=== PATIENT | female | born 1950 | race Caucasian/White ===

== ENCOUNTER → 2019-05-07 17:31 | Outpatient (CLI) | payer MEDICARE, OTHER, SELFPAY ==
--- NOTE | ~2019-05-07 | XR_ITS ---
EXAMINATION: XR chest 2V DATE: 05/07/2019 17:46 INDICATION: Pneumonia. Cough and fever. TECHNIQUE: PA and lateral views of the chest were obtained. COMPARISON: None FINDINGS: The lungs are clear with no focal airspace opacities, pulmonary edema, pleural effusion or pneumothor ax. Small fat pad along the cardiac apex. The cardiomediastinal silhouette is normal. Mild thoracic s pondylosis. IMPRESSION: 1. No acute cardiopulmonary disease. Reviewed, dictated and finalized at location A. RTER
== END ==
PROVIDERS: PCP Family Medicine; Visit Provider Nurse Practitioner Family
DX: R50.9 Fever, unspecified (principal); J18.9 Pneumonia, unspecified organism
CPT/HCPCS: 71046

== ENCOUNTER → 2020-01-15 13:12 | Outpatient (CLI) | payer MEDICARE, OTHER, SELFPAY ==
--- NOTE | ~2020-01-15 | MM_ITS ---
EXAMINATION: MM screening tez BI w elliott HISTORY: Screening mammogram TECHNIQUE: Craniocaudal and mediolateral oblique 3-D tomosynthesis images were obtained and synthetic 2-D images were generated. CAD analysis was submitted and interpreted. COMPARISON: 06/28/2018, 03/20/2017 bilateral digital screening mammogram examinations BREAST PARENCHYMAL COMPOSITION: There are scattered areas of fibroglandular density. FINDINGS: There is no evidence of suspicious mass, calcification, or architectural distortion to sugg est malignancy in either breast. There has been no suspicious interval change. IMPRESSION: 1. No mammographic evidence of malignancy. 2. Recommend routine screening mammography in one year. BI-RADS Category 1: Negative Reviewed, dictated and finalized at location A.
== END ==
PROVIDERS: PCP Family Medicine; Visit Provider Family Medicine
DX: Z12.31 Encounter for screening mammogram for malignant neoplasm of breast (principal)
CPT/HCPCS: 77063; 77067

== ENCOUNTER → 2020-11-11 12:13 | Outpatient (CLI) | payer MEDICARE, OTHER, SELFPAY ==
--- NOTE | ~2020-11-11 | DEXA_ITS ---
Bone Density Report Name: Whitney Murillo Age: 70 Sex: Female Ethnicity: White Date of : 1950 Indication: postmenopausal osteoporosis; monitoring treatment; height loss; hysterectomy; Referring Provider: Zoraida Cherry Study: Bone densitometry was performed. Exam Date: November 11, 2020 Accession number: [id number] Bone Density: Region BMD T-score Z-score Classification AP Spine (L1-L4) 0.744 -2.8 -0.5 Osteoporosis Femoral Neck (Left) 0.581 -2.4 -0.5 Osteopenia Total Hip (Left) 0.750 -1.6 0.0 Osteopenia Femoral Neck (Right) 0.614 -2.1 -0.2 Osteopenia Total Hip (Right) 0.733 -1.7 -0.1 Osteopenia Total Hip Mean 0.742 -1.7 -0.1 Osteopenia World Health Organization criteria for BMD impression classify patients as: Normal (T-score at or above -1.0), Osteopenia (T-score between -1.0 and -2.5), or Osteoporosis (T-score at or below -2.5). 10-year Fracture Risk: FRAX not reported because: Some T-score for Spine Total or Hip Total or Femoral Neck at or below -2.5 Treated for osteoporosis Previous Exams: Region Exam Age BMD T-score BMD Change BMD Change Date g/cm2 vs Baseline vs Previous AP Spine(L1-L4) 11/11/2020 70 0.744 -2.8 0.073* 0.073* 06/28/2018 68 0.672 -3.4 Total Hip(Left) 11/11/2020 70 0.750 -1.6 0.030* 0.030* 06/28/2018 68 0.720 -1.8 Total Hip(Right) 11/11/2020 70 0.733 -1.7 0.059* 0.059* 06/28/2018 68 0.674 -2.2 *Denotes significance at 95% confidence level, LSC for AP Spine = 0.022 g/cm2, LSC for Total Hip = 0.027 g/cm2 Clinical Information Provided by Patient: Is being treated for osteoporosis Has used the following medications: Prolia (i.e. denosumab), Vitamin D, Calcium, LEVOTHYROXINE Has the following medical conditions: Hysterectomy Patient maximum height was 64.5 Menopause Age: 29 No regular weight bearing exercise Drinks caffeinated beverages Onset of menses at age 12 Number of children 1 Impression: The patient has osteoporosis, based on the Total Spine T-score. No significant bone loss was observed. Discussion: PATIENT UNDER TREATMENT WITH NO SIGNIFICANT BMD LOSS SINCE LAST EXAM. In an untreated patient, BMD typically declines with age. A lack of decline or gain is usually a sign that treatment is efficacious and fracture risk is reduced. It is important to ask patients whether they are taking their medications and to encourage continued and appropriat
== END ==
PROVIDERS: PCP Family Medicine; Visit Provider Physician Assistant
DX: Z78.0 Asymptomatic menopausal state (principal); M81.0 Age-related osteoporosis without current pathological fracture; M16.0 Bilateral primary osteoarthritis of hip
CPT/HCPCS: 77080

== ENCOUNTER → 2021-03-25 10:09 | Outpatient (CLI) | payer MEDICARE, OTHER, SELFPAY ==
--- NOTE | ~2021-03-25 | MM_ITS ---
EXAMINATION: MM screening tez BI w elliott HISTORY: Screening mammogram TECHNIQUE: Craniocaudal and mediolateral oblique 3-D tomosynthesis images were obtained and synthetic 2-D images were generated. CAD analysis was submitted and interpreted. COMPARISON: 01/15/2020, 06/28/2018, 03/20/2017 bilateral screening mammogram examinations BREAST PARENCHYMAL COMPOSITION: There are scattered areas of fibroglandular density. FINDINGS: There is no evidence of suspicious mass, calcification, or architectural distortion to sugg est malignancy in either breast. There has been no suspicious interval change. IMPRESSION: 1. No mammographic evidence of malignancy. 2. Recommend routine screening mammography in one year. BI-RADS Category 1: Negative Reviewed, dictated and finalized at location A. ICATION SUPERVISOR
== END ==
PROVIDERS: PCP Family Medicine; Visit Provider Physician Assistant
DX: Z12.31 Encounter for screening mammogram for malignant neoplasm of breast (principal)
CPT/HCPCS: 77063; 77067

== ENCOUNTER → 2021-09-17 14:56 | Outpatient (CLI) | payer MEDICARE, OTHER, SELFPAY ==
--- NOTE | ~2021-09-17 | XR_ITS ---
EXAMINATION: XR abdomen obstructive series DATE: 09/17/2021 15:32 INDICATION: Abdominal distention TECHNIQUE: Supine and upright views of the abdomen. FINDINGS: No prior studies for comparison. The visualized lung parenchyma is normal.. There is a nonobstructive bowel gas pattern. Gas and stool are seen throughout the colon to the level of the rectum. There is no free air. IMPRESSION: 1. No acute abdominal abnormality. Reviewed, dictated and finalized at location A.
== END ==
PROVIDERS: PCP Family Medicine; Visit Provider Family Medicine
DX: R14.0 Abdominal distension (gaseous) (principal); R10.9 Unspecified abdominal pain
CPT/HCPCS: 74019

== ENCOUNTER → 2022-06-15 15:24 | Outpatient (CLI) | payer OTHER, SELFPAY ==
--- NOTE | ~2022-06-15 | MM_ITS ---
EXAMINATION: MM screening tez BI w elliott HISTORY: Screening mammogram TECHNIQUE: Craniocaudal and mediolateral oblique 3-D tomosynthesis images were obtained and synthetic 2-D images were generated. CAD analysis was submitted and interpreted. COMPARISON: 03/25/2021, 01/15/2020, 06/28/2018 bilateral screening mammogram examinations BREAST PARENCHYMAL COMPOSITION: There are scattered areas of fibroglandular density. FINDINGS: There is no evidence of suspicious mass, calcification, or architectural distortion to sugg est malignancy in either breast. There has been no suspicious interval change. IMPRESSION: 1. No mammographic evidence of malignancy. 2. Recommend routine screening mammography in one year. BI-RADS Category 1: Negative Reviewed, dictated and finalized at location A. SKINNER
== END ==
PROVIDERS: PCP Family Medicine; Visit Provider Family Medicine
DX: Z12.31 Encounter for screening mammogram for malignant neoplasm of breast (principal)
CPT/HCPCS: 77063; 77067

== ENCOUNTER 2022-09-04 21:52 | Emergency (ER) | payer MEDICARE, SELFPAY ==
[2022-09-04] VITALS (8 sets, daily range): BP systolic 120–149; BP diastolic 63–69; PULSE 73; RESP 14–17; TEMP 36.1; O2SAT 93–99
--- NOTE | ~2022-09-04 | CT_ITS ---
Non-contrast CT scan of the Abdomen and Pelvis Clinical indication: Right flank pain Technique: 2.5 mm axial scans were obtained through the abdomen and pelvis without intravenous or or al contrast. Dose reduction technique was used on this scan by utilizing automated exposure control a nd iterative reconstruction technique. The dose-length product (DLP) was 971.61 mGy-cm. Findings: Images through the lung bases reveal 3 mm medial left basilar pulmonary nodule (axial imag e 7). There is an additional 2 mm left basilar pulmonary nodule (axial image 7).. There is no evidence of renal or ureteral calculi. The kidneys and the ureters are nondilated. The liver, spleen, pancreas, gallbladder, and adrenals appear normal. There is no aortic aneurysm. There is no evidence of bowel obstruction. Small fat-containing umbilical hernia noted. No evidence f or appendicitis. Images through the pelvis were performed. There is no evidence of ascites or lymphadenopathy. Urinary bladder unremarkable. Patient is post hysterectomy. No pelvic mass seen. There is a small sclerotic lesion at the posterior left side of the T12 vertebral body, nonspecific. Impression: Small fat-containing umbilical hernia. Small sclerotic lesion in the posterior left T12 vertebral body, nonspecific. Reviewed, dictated and finalized at location . Impression: Small fat-containing umbilical hernia. Small sclerotic lesion in the posterior left T12 vertebral body, nonspecific.
--- NOTE | 2022-09-04 22:32 | ED.BACK ---
HPI - Back Pain/Injury General Chief Complaint: Back Pain/Injury Stated Complaint: back pain Time Seen by Provider: 09/04/22 22:14 History of Present Illness HPI Narrative: This is a 72-year-old female with history of hypothyroidism, who presents emergency department complaining of right-sided flank pain for the past 2 days. Patient states 2 days ago, she lifted laundry and turned sharply with immediate onset of 7/10 right flank pain she states this did not improve despite Tylenol or ibuprofen. She also incidentally complains of intermittent abdominal bloating but denies abdominal pain Related Data Home Medications Medication Instructions Recorded Confirmed calcium carbonate 600 mg calcium 600 mg PO DAILY 02/12/21 08/04/22 (1,500 mg) tablet (Calcium) cholecalciferol (vitamin D3) 25 25 mcg PO DAILY 02/12/21 08/04/22 mcg (1,000 unit) capsule Allergies Allergy/AdvReac Type Severity Reaction Status Date / Time lactose Allergy Intermediate Nausea and Verified 09/04/22 21:53 Vomiting Sulfa (Sulfonamide Allergy Intermediate Nausea and Verified 09/04/22 21:53 Antibiotics) Vomiting Review of Systems Review of Systems: CONSTITUTIONAL: Denies fever, chills, or sweats. CARDIOVASCULAR: Denies chest pain, palpitations, or edema. RESPIRATORY: Denies cough or dyspnea. GASTROINTESTINAL: Right flank pain denies nausea, vomiting, or diarrhea. GENITOURINARY: Denies dysuria or hematuria. SKIN: Denies rash or itching. MUSCULOSKELETAL: Denies back pain, joint pain, or myalgia. NEUROLOGIC: Denies headache, numbness, dizziness, or weakness. PSYCHIATRIC: Denies anxiety or depression. [facility] Past Medical History Medical History Age-related osteoporosis without current pathological fracture Elevated LDL cholesterol level Gastro-esophageal reflux disease without esophagitis Hypothyroidism, unspecified Postmenopausal Surgical History Surgical History H/O: hysterectomy Family History Family History Mother Family history of elevated blood lipids Hypertension Cerebrovascular accident, Onset Age: 63 Patient's mother is Father Family history of chronic obstructive pulmonary disease, Onset Age: 77 Patient's father is Sibling Scleroderma Social History Social History Social History: Smoking status: Never smoker Second hand tobacco smoke exposure: No Alcohol intake: never Substance use: never Substance use type: does not use Lack of Transportation: No Lack of Food: Never True Current Housing: I Have Housing Concerned About Future Housing: No Difficulty Paying Gas/Electric Bills: No Difficulty Paying for Meds: No Currently Unemployed: YES Education: Decline to Answer Difficulty w/ Childcare or Family Care: No Living arrangements: with family Occupation/Education: retired Gender identity (if verbalized by the patient): Female Sexual Orientation (if Verbalized by the Patient): Straight or Heterosexual Spiritual care concerns: No Exam Narrative: GENERAL: Well-developed, well-nourished, and in no acute distress. HEAD: Normocephalic, atraumatic. EYES: PERRLA and EOMI. ENT: Nares clear, no rhinorrhea or epistaxis. Mucous membranes moist. Oropharynx without tonsillar hypertrophy exudate or other lesions. CHEST: Clear to auscultation. No respiratory distress. No wheezes rales or rhonchi HEART: Regular rate and rhythm. No murmur heard. Normal peripheral pulses. ABDOMEN: Soft, nontender, nondistended, normal active bowel sounds. BACK: No midline spine tenderness to palpation, no step-off or crepitus, muscle spasm noted in the lumbar paraspinal musculature from approximately L1-L5 EXTREMITIES: Normal range
[2022-09-04] MEDS: KETOROLAC 30 MG/ML VIAL (*BKC) IM (22:37)
[2022-09-04] MEDS: CYCLOBENZAPRINE HCL 5 MG TABLET PO (22:38)
[2022-09-04 22:59] LABS: Alanine Aminotransferase 38 U/L (6-35); Albumin Level 4.2 g/dL (3.5-5.1); Alkaline Phosphatase 85 U/L (38-126); Anion Gap 5 mmol/L (8-16); Aspartate Amino Transferase 25 U/L (14-36); Bilirubin,Total 0.3 mg/dL (0.2-1.3); Blood Urea Nitrogen 13 mg/dL (7-17); Calcium 9.2 mg/dL (8.4-10.2); Carbon Dioxide 32 mmol/L (22-30); Chloride 98 mmol/L (98-107); Estimated CRCL calculation 69 ml/min; Estimated Glomerular Filt Rate > 60; Glucose 129 mg/dL (65-110); Potassium 3.7 mmol/L (3.4-5.0); Sodium 135 mmol/L (137-145)
[2022-09-04] MEDS: oxyCODONE/ACETAMINOPHEN (*CRX) 5-325 MG TABLET 1 TABLET PO (23:50)
[2022-09-05] MEDS: LIDOCAINE 5% PATCH 1 PATCH TRANSDERM (00:33)
[2022-09-05 00:40] LABS: Appearance Urine Cloudy (Clear); Bacteria Urine None Seen /hpf; Bilirubin Urine Negative (Negative); Blood Urine Negative (Negative); Color Urine Yellow (Yellow); Glucose Urine UA Negative (Negative); Ketones Urine Negative (Negative); Leukocyte Esterase Ur 3+ LEU/UL (Negative); Nitrate Urine Negative (Negative); Non Pathogenic Casts 0-2; Protein Urine Negative (Negative); RBC Urine 0-2 /hpf (0-2); Specific Grav Ur 1.011 (1.001-1.035); Squamous Epithelial Cell Urine None seen /hpf (Few); Urobilinogen Urine 0.2 mg/dL (<2.0); WBC Urine 21-50 /hpf
[2022-09-05 00:45] LABS: Add Urine Microscopic? YES
[2022-09-05 00:54] VITALS: BP 112/68; PULSE 90; RESP 16; O2SAT 99
== END 2022-09-05 00:56 | disposition home or self-care (01) ==
PROVIDERS: Emergency Provider Preventive Medicine Aerospace Medicine; PCP Family Medicine
DX: S39.012A Strain of muscle, fascia and tendon of lower back, initial encounter (principal); E78.00 Pure hypercholesterolemia, unspecified; E03.9 Hypothyroidism, unspecified; M81.0 Age-related osteoporosis without current pathological fracture; K21.9 Gastro-esophageal reflux disease without esophagitis; Z90.710 Acquired absence of both cervix and uterus; X50.0XXA Overexertion from strenuous movement or load, initial encounter
CPT/HCPCS: 36415; 74176; 80053; 81001; 87086; 87088; 96372; 99284; A9270; J1885

== ENCOUNTER 2022-11-10 03:48 | Day surgery (SDC) | payer MEDICARE, SELFPAY ==
[2022-10-31 13:31] VITALS: BMI 25.5
--- NOTE | 2022-11-09 16:23 | PM.HPGS ---
History of Present Illness History of Present Illness Consent: Risks, benefits, and alternatives have been discussed and questions answered. Patient agrees to proceed with procedure. Chief complaint: celiac disease, diarrhea Narrative: Whitney Murillo is a 72 year old female is being investigated because of complaints of excessively loose stools and sometimes nearly being incontinent.? This began less than a year ago.? She is also having a discomfort in the right lower quadrant.? Is primarily that the last 6 months she has been the most uncomfortable.? It did give her the sensation that when she has a bowel movement that the stools coming from the right side.? She has celiac disease diagnosed 5 years ago and has been very good about the diet. Review of Systems Review of Systems: All systems reviewed & are unremarkable except as noted in HPI and below PMFSH Past Medical History Medical History Age-related osteoporosis without current pathological fracture Elevated LDL cholesterol level Gastro-esophageal reflux disease without esophagitis Hypothyroidism, unspecified Postmenopausal Surgical History Surgical History H/O: hysterectomy Family History Family History Mother Family history of elevated blood lipids Hypertension Cerebrovascular accident, Onset Age: 63 Patient's mother is Father Family history of chronic obstructive pulmonary disease, Onset Age: 77 Patient's father is Sibling Scleroderma Social History Social History Social History: Smoking status: Never smoker Second hand tobacco smoke exposure: No Alcohol intake: never Substance use: never Substance use type: does not use Lack of Transportation: No Lack of Food: Never True Current Housing: I Have Housing Concerned About Future Housing: No Difficulty Paying Gas/Electric Bills: No Difficulty Paying for Meds: No Currently Unemployed: YES Education: Decline to Answer Difficulty w/ Childcare or Family Care: No Living arrangements: other Additional living arrangements comments: With spouse Occupation/Education: retired Gender identity (if verbalized by the patient): Female Sexual Orientation (if Verbalized by the Patient): Straight or Heterosexual Spiritual care concerns: No Meds Home Medications and Allergies Home Medications Medication Instructions Recorded Confirmed Type calcium carbonate 600 mg calcium 600 mg PO DAILY 10/22/21 07/20/23 History (1,500 mg) tablet (Calcium) cholecalciferol (vitamin D3) 25 25 mcg PO DAILY 02/12/21 11/10/22 History mcg (1,000 unit) capsule levothyroxine 100 mcg tablet 100 mcg PO DAILY #90 tabs 03/21/22 11/10/22 Rx azelastine 137 mcg (0.1 %) nasal 137 mcg intranasal Q12H PRN 10/31/22 11/10/22 History spray aerosol allergies Allergies Allergy/AdvReac Type Severity Reaction Status Date / Time lactose AdvReac Intermediate Nausea and Verified 11/10/22 10:08 Vomiting Sulfa (Sulfonamide AdvReac Intermediate Nausea and Verified 11/10/22 10:08 Antibiotics) Vomiting Exam Const: General: alert Orientation/consciousness: patient oriented x3 Resp: Auscultation: clear to auscultation bilaterally Cardio: Rhythm: regular rhythm GI: GI Palp: Yes Soft to palpation and No Tenderness to palpation present (GI) Neuro: General: patient oriented x3 Assessment and Plan Assessment and plan (1) Celiac disease: Code(s): K90.0 - Celiac disease Status: Acute Assessment and Plan: EGD with possible biopsy or dilatation or cautery. (2) Diarrhea: Code(s): R19.7 - Diarrhea, unspecified Status: Acute Assessment and Plan: Colonoscopy with possible biopsy or polyp
[2022-11-10 10:09] VITALS: BP 120/47; PULSE 58; RESP 18; TEMP 36.7; O2SAT 99; BMI 25.2
[2022-11-10] MEDS: LACTATED RINGERS 1,000 ML 150 ML IV CONT (10:29)
--- NOTE | 2022-11-10 10:32 | WPDANESEPPF ---
Anes - Initial Pre Proc Eval Procedure: Operation Date: 11/10/22 11:15 Proposed Procedures p Esophagogastroduodenoscopy & Colonoscopy - Nik Castellanos MD Date/Time: 11/10/22 10:32 Surgeon: Nik Castellanos MD Pre Op Diagnosis: celiac disease, diarrhea Patient Data Age: 72 Gender: F Height: 1.61 m Weight: 65.8 kg Last Vital Signs Temp 98.0 F 11/10/22 10:09 Pulse 58 L 11/10/22 10:09 Resp 18 11/10/22 10:09 BP 120/47 L 11/10/22 10:09 Pulse Ox 99 11/10/22 10:09 O2 Del Method Room Air 11/10/22 10:09 Allergies Allergy/AdvReac Type Severity Reaction Status Date / Time lactose AdvReac Intermediate Nausea and Verified 11/10/22 10:08 Vomiting Sulfa (Sulfonamide AdvReac Intermediate Nausea and Verified 11/10/22 10:08 Antibiotics) Vomiting Home Medications Medication Instructions Recorded Confirmed Type calcium carbonate 600 mg calcium 600 mg PO DAILY 02/12/21 11/10/22 History (1,500 mg) tablet (Calcium) cholecalciferol (vitamin D3) 25 25 mcg PO DAILY 02/12/21 11/10/22 History mcg (1,000 unit) capsule levothyroxine 100 mcg tablet 100 mcg PO DAILY #90 tabs 03/21/22 11/10/22 Rx azelastine 137 mcg (0.1 %) nasal 137 mcg intranasal Q12H PRN 10/31/22 11/10/22 History spray aerosol allergies Patient hx anesthesia problems: none Family hx anesthesia problems: none Results Review: All pre-operative results and documents have been reviewed as part of the pre-operative evaluation. [facility] Past Medical History Medical History Age-related osteoporosis without current pathological fracture Elevated LDL cholesterol level Gastro-esophageal reflux disease without esophagitis Hypothyroidism, unspecified Postmenopausal Surgical History Surgical History H/O: hysterectomy Family History Family History Mother Family history of elevated blood lipids Hypertension Cerebrovascular accident, Onset Age: 63 Patient's mother is Father Family history of chronic obstructive pulmonary disease, Onset Age: 77 Patient's father is Sibling Scleroderma Social History Social History Social History: Smoking status: Never smoker Second hand tobacco smoke exposure: No Alcohol intake: never Substance use: never Substance use type: does not use Lack of Transportation: No Lack of Food: Never True Current Housing: I Have Housing Concerned About Future Housing: No Difficulty Paying Gas/Electric Bills: No Difficulty Paying for Meds: No Currently Unemployed: YES Education: Decline to Answer Difficulty w/ Childcare or Family Care: No Living arrangements: other Additional living arrangements comments: With spouse Occupation/Education: retired Gender identity (if verbalized by the patient): Female Sexual Orientation (if Verbalized by the Patient): Straight or Heterosexual Spiritual care concerns: No Anes - Eval Final PreProcedure Day of Procedure 11/10/22 10:32 Patient weight: normal Heart: regular rate and rhythm Lungs: clear to auscultation Airway: Mallampati scale class II Neurological: alert and oriented Last oral intake: >/= 8 hours ASA classification: II Emergent: no Anesthetic plan: proceed Anesthesia type and monitoring: general GIVS and standard monitoring Results Review: All pre-operative results and documents have been reviewed as part of the pre-operative evaluation. Informed Consent: The patient's anesthetic plan and its attendant risks and benefits were discussed with the patient/family/POA. Questions were solicited and answers provided to the satisfaction of the patient/family/POA.
--- NOTE | 2022-11-10 11:37 | SUR.OPER ---
EGD began at 1129 and ended at 1134. Colonoscopy began at 1139.
[2022-11-10 11:54] VITALS: BP 125/64; PULSE 74; RESP 21; O2SAT 100
[2022-11-10 12:04] VITALS: BP 129/73; PULSE 70; RESP 20; O2SAT 100
[2022-11-10 12:14] VITALS: BP 117/72; PULSE 76; RESP 16; O2SAT 100
== END 2022-11-10 12:31 | disposition home or self-care (01) ==
PROVIDERS: PCP Family Medicine; Visit Provider Internal Medicine Gastroenterology
PROC: 0DJ08ZZ Inspection of Upper Intestinal Tract, Via Natural or Artificial Opening Endoscopic (ICD-10-PCS; CPT 43235; principal; 2022-11-10 11:15)
DX: R19.7 Diarrhea, unspecified (principal); K21.9 Gastro-esophageal reflux disease without esophagitis; K90.0 Celiac disease; E03.9 Hypothyroidism, unspecified; E78.00 Pure hypercholesterolemia, unspecified; M81.0 Age-related osteoporosis without current pathological fracture
CPT/HCPCS: 45380; 43239; 88305; J2704; J7120

== ENCOUNTER → 2023-01-25 13:32 | Outpatient (CLI) | payer MEDICARE, SELFPAY ==
--- NOTE | ~2023-01-25 | DEXA_ITS ---
Bone Density Report Name: XENA RAMIREZ Age: 72 Sex: Female Ethnicity: White Date of : 1950 Indication: postmenopausal osteoporosis; hysterectomy; Referring Provider: BIANCA KUNZ Study: Bone densitometry was performed. Exam Date: January 25, 2023 Accession number: [id number] Bone Density: Region BMD T-score Z-score Classification AP Spine (L1-L4) 0.716 -3.0 -0.7 Osteoporosis Femoral Neck (Left) 0.617 -2.1 -0.1 Osteopenia Total Hip (Left) 0.739 -1.7 0.0 Osteopenia Femoral Neck (Right) 0.564 -2.6 -0.6 Osteoporosis Total Hip (Right) 0.707 -1.9 -0.2 Osteopenia Total Hip Mean 0.723 -1.8 -0.1 Osteopenia World Health Organization criteria for BMD impression classify patients as: Normal (T-score at or above -1.0), Osteopenia (T-score between -1.0 and -2.5), or Osteoporosis (T-score at or below -2.5). 10-year Fracture Risk: FRAX not reported because: Some T-score for Spine Total or Hip Total or Femoral Neck at or below -2.5 Previous Exams: Region Exam Age BMD T-score BMD Change BMD Change Date g/cm2 vs Baseline vs Previous AP Spine(L1-L4) 01/25/2023 72 0.716 -3.0 0.044* -0.029* 11/11/2020 70 0.744 -2.8 0.073* 0.073* 06/28/2018 68 0.672 -3.4 Total Hip(Left) 01/25/2023 72 0.739 -1.7 0.018 -0.012 11/11/2020 70 0.750 -1.6 0.030* 0.030* 06/28/2018 68 0.720 -1.8 Total Hip(Right) 01/25/2023 72 0.707 -1.9 0.032* -0.027 11/11/2020 70 0.733 -1.7 0.059* 0.059* 06/28/2018 68 0.674 -2.2 *Denotes significance at 95% confidence level, LSC for AP Spine = 0.022 g/cm2, LSC for Total Hip = 0.027 g/cm2 Clinical Information Provided by Patient: Has used the following medications: Vitamin D Has the following medical conditions: Hysterectomy Patient maximum height was 63.5 Menopause Age: 28 No regular weight bearing exercise Drinks caffeinated beverages Onset of menses at age 12 Number of children 1 Impression: The patient has osteoporosis, based on the Total Spine T-score. The BMD for the AP Spine(L1-L4) decreased, changing by -0.029 since the last DXA exam. Discussion: INCREASED RISK OF FRACTURE. BONE DENSITY IS UNDESIRABLY LOW AT ONE OR MORE SKELETAL SITES, CONSISTENT WITH POSTMENOPAUSAL OSTEOPOROSIS. This patient's lowest T-score meets the World Health Organization's (WHO) criteria for osteoporosis at one or more s
== END ==
PROVIDERS: PCP Physician Assistant; Visit Provider Physician Assistant
DX: Z78.0 Asymptomatic menopausal state (principal); M81.0 Age-related osteoporosis without current pathological fracture; M85.852 Other specified disorders of bone density and structure, left thigh; M85.851 Other specified disorders of bone density and structure, right thigh
CPT/HCPCS: 77080

== ENCOUNTER 2023-06-06 08:42 | Outpatient (CLI) | payer MEDICARE, SELFPAY ==
--- NOTE | 2023-06-06 08:45 | ECHO_ITS ---
Patient Info Name: Whitney Murillo Age: 73 years : 1950 Gender: Female Ht: 64 in Wt: 147 lbs BSA: 1.75 m2 HR: 65 bpm BP: 149 / 80 mmHg Heart Rhythm: Sinus Rhythm Technical Quality: Good Exam Date: 06/06/2023 9:12 AM Exam Location: Echo Lab Patient Status: Outpatient Admit Date: 06/06/2023 Staff Ordering Physician: Alyssa Pappas MD Storage Receipt Poster: Lori James RDCS Attending Provider: Alyssa Pappas MD Referring Physician: Mian PHILLIPS; Exam Type: CA echo doppler color flow Study Info Indications - murmur Complete two-dimensional, color flow and Doppler transthoracic echocardiogram is performed. Summary 1. Complete two-dimensional, color flow and Doppler transthoracic echocardiogram is performed. 2. Left ventricular chamber dimension is normal. 3. Left ventricular systolic function is normal, estimated at 60-65%. 4. The left ventricular diastolic function is abnormal. 5. E/e' 15 is elevated. 6. Left atrial chamber dimension is mildly enlarged. 7. There is trace mitral valve regurgitation. 8. No pulmonary hypertension, estimated pulmonary arterial systolic pressure is 24 mmHg. Left Ventricle E/e' 15 is elevated. Left ventricular chamber dimension is normal. Left ventricular systolic function is normal, estimated at 60-65%. The left ventricular diastolic function is abnormal. Right Ventricle Right ventricular systolic function is normal and with normal TAPSE 2.3 cm. Right ventricular chamber dimension is normal. Left Atria Left atrial chamber dimension is mildly enlarged. Right Atria Right atrial chamber dimension is normal. Aortic Valve The aortic valve is trileaflet. There is no aortic valve stenosis. There is no aortic valve regurgitation. Pulmonic Valve There is no pulmonic regurgitation. Mitral Valve There is no mitral valve stenosis. There is trace mitral valve regurgitation. Tricuspid Valve There is no tricuspid valve regurgitation. No pulmonary hypertension, estimated pulmonary arterial systolic pressure is 24 mmHg. Pericardium/Pleural There is no pericardial effusion. Inferior Vena Cava Normal inferior vena cava with >50% collapse upon inspiration consistent with normal right atrial pressure, 5 mmHg. Aorta The aortic root size at the sinus of Valsalva is normal. Left Ventricular Outflow Tract Name Value Normal LVOT 2D LVOT Diameter 1.8 cm LVOT Doppler LVOT Peak Gradient 4 mmHg LVOT Mean Gradient 2 mmHg LVOT VTI 27 cm LVOT VTI/AV VTI Ratio 0.7 LVOT Stroke Volume 65 ml LVOT CO 4.0 l/min LVOT CI 2.3 l/min/m2 Pulmonic Valve Name Value Normal RVOT Doppler RVOT Peak Gradient 3 mmHg PV Doppler
== END 2023-06-06 08:43 | disposition home or self-care (01) ==
PROVIDERS: PCP Family Medicine; Visit Provider Family Medicine
DX: R93.1 Abnormal findings on diagnostic imaging of heart and coronary circulation (principal); I34.0 Nonrheumatic mitral (valve) insufficiency; I51.7 Cardiomegaly
CPT/HCPCS: 93306

== ENCOUNTER 2024-11-03 08:19 | Emergency (ER) | payer MEDICARE, SELFPAY ==
--- OUTSIDE RECORDS SUMMARY | 2024-11-03 08:22 | XMS_ITS | Patient Health Record ---
Author Organization [facility] Address [address] [place], [place] [id number] Care Team Providers Care Work Environment Safety Inspector Name Role Phone SHANKAR PARSON Unavailable [phone] Oral Latif Unavailable Unavailable Allergies Allergen (clinical drug ingredient) Drug/Non Drug Allergy documented on EMR Reaction Allergy Type Onset Date Status Product containing sulfonamide (product) (uncoded) Unknown Allergy 03/27/2017 active Reason For Referral No Information Medications Medication SIG (Take, Route, Frequency, Duration) Notes Start Date End Date Status ciclopirox 80 MG/ML Topical Solution ciclopirox 80 MG/ML Topical SolutionOriginal Medicationciclopirox 80 MG/ML Topical Solution *Reorder from [employer] for eRx and Interaction Alerts* 07/17/2017 Active Immunizations Vaccine Route Administration Date Status Comme nts Influenza, seasonal, injecta ble, preservative free, 3 yrs and above Unknown 01/25/2023 Administered Vital Signs Height-cm 162.56 cm 10/28/2024 Weight-kg 59.87 kg 10/28/2024 Height 64.00 in 10/28/2024 Weight 132 lbs 10/28/2024 BMI 22.66 kg/m2 10/28/2024 Encounters Encounter Location Date Provider Diagnosis [facility] [address] [place], [place] [id number] 10/28/2024 SHANKAR SNOOK Tinea unguium B35.1 [facility] [address] [place], [place] [id number] 12/18/2023 SHANKAR SNOOK Tinea unguium B35.1 ; Pain in right toe(s) M79.674 ; Pain in left toe(s) M79.675 and Atherosclerosis of nenana arteries of extremities with intermittent claudication, bilateral legs I70.213 [facility] [address] [place] [id number] 02/26/2024 SHANKAR SNOOK Tinea unguium B35.1 ; Pain in right toe(s) M79.674 ; Pain in left toe(s) M79.675 and Atherosclerosis of nenana arteries of extremities with intermittent claudication, bilateral legs I70.213 [facility] [address] [place] [id number] 06/03/2024 SHANKAR SNOOK Tinea unguium B35.1 ; Pain in right toe(s) M79.674 ; Pain in left toe(s) M79.675 and Atherosclerosis of nenana arteries of extremities with intermittent claudication, bilateral legs I70.213 [facility] [address] [place] [id number] 08/12/2024 SHANKAR SNOOK Tinea unguium B35.1 ; Pain in right toe(s) M79.674 ; Pain in left toe(s) M79.675 and Intermittent claudication of both lower extremities due to atherosclerosis I70.213 Assessments Encounter Date Diagnosis (ICD Code) Assessment Notes Treatment Notes Treatment Clinical Notes Section Notes 12/18/2023 Tinea unguium (ICD-10 - B35.1) FUNGAL TOENAILS: Discussed various treatment options for fungal toenails including debridement, topical antifungals, oral antifungals, toenail avulsion, or toenail matrixectomy. NAIL DEBRIDEMENT: Nails 1-5 Bilateral were debrided extensively with nail nippers and emery board, reducing length and girth to pink healthy tissue with any subungual debris and necrotic tissue removed 12/18/2023 Pain in right toe(s) (ICD-10 - M79.674) 02/26/2024 Tinea unguium (ICD-10 - B35.1) FUNGAL TOENAILS: Discussed various treatment options for fungal toenails including debridement, topical antifungals, oral antifungals, toenail avulsion, or toenail matrixectomy. NAIL DEBRIDEMENT: Nails 1-5 Bilateral were debrided extensively with nail nippers and emery board, reducing length and girth to pink healthy tissue with any subungual debris and necrotic tissue removed 02/26/2024 Pain in right toe(s) (ICD-10 - M79.674) 06/03/2024 Tinea unguium (ICD-10 - B35.1) FUNGAL TOENAILS: Discussed various treatment options for fungal toenails including debridement, topical antifungals, oral antifungals, toenail avulsion, or toenail matrixectomy. NAIL DEBRIDEMENT: Nails 1-5 Bilateral were debrided extensively with nail nippers and emery board, reducing length and girth to pink healthy tissue with any subungual debris and necrotic tissue removed 06/03/2024 Pain in right toe(s) (ICD-10 - M79.674) 08/12/2024 Tinea unguium (ICD-10 - B35.1) FUNGAL TOENAILS: Discussed various treatment options for fungal toenails including debridement, topical antifungals, oral antifungals, toenail avulsion, or toenail matrixectomy. NAIL DEBRIDEMENT: Nails 1-5 Bilateral were debrided extensively with nail nippers and emery board, reducing length and girth to pink healthy tissue with any subungual debris and necrotic tissue removed 08/12/2024 Pain in right toe(s) (ICD-10 - M79.674) 10/28/2024 Tinea unguium (ICD-10 - B35.1) FUNGAL TOENAILS: Discussed various treatment options for fungal toenails including debridement, topical antifungals, oral antifungals, toenail avulsion, or toenail matrixectomy. NAIL DEBRIDEMENT: Nails 1-5 Bilateral were debrided extensively with nail nippers and emery board, reducing length and girth to pink healthy tissue with any subungual debris and necrotic tissue removed. Lamisil Initial Treatment: Order Liver Function tests prior to course of oral Lamisil. If the LFTS are within normal limits, order 6 weeks of Lamisil. Liver Function Test will be repeated after 6 weeks prior to final dose for a total of 12 weeks of therapy. 08/12/2024 Pain in left toe(s) (ICD-10 - M79.675) 06/03/2024 Pain in left toe(s) (ICD-10 - M79.675) 02/26/2024 Pain in left toe(s) (ICD-10 - M79.675) 12/18/2023 Pain in left toe(s) (ICD-10 - M79.675) 12/18/2023 Atherosclerosis of nenana arteries of extremities with intermittent claudication, bilateral legs (ICD-10 - I70.213) 02/26/2024 Atherosclerosis of nenana arteries of extremities with intermittent claudication, bilateral legs (ICD-10 - I70.213) 06/03/2024 Atherosclerosis of nenana arteries of extremities with intermittent claudication, bilateral legs (ICD-10 - I70.213) 08/12/2024 Intermittent claudication of both lower extremities due to atherosclerosis (ICD-10 - I70.213) Plan Of Treatment Pending Test Test Name Order Date Liver Function Test (LFT) 10/28/2024 Next Appt Details Provider Name:SHANKAR PARSON, 09:10:00 AM, [address], [facility], [place], [place], [phone], Provider Name:SHANKAR PARSON, 10:00:00 AM, [address], [facility], [place], [place], [phone], Insurance Providers Payer Name Payer Address Payer Phone Subscriber Number Group Number Insured Name Patient Relationship to Insured Coverage Start Date Coverage End Date [address] [address] [id number] XENA RAMIREZ Self - patient is the insured
--- OUTSIDE RECORDS SUMMARY | 2024-11-03 08:22 | XMS_ITS ---
Author Organization [facility] Address [address] [place], [place] [phone] Care Team Providers Care Forest Patrolman Name Role Phone BLANK SHANKAR Unavailable [phone] Oral Latif Unavailable Unavailable Allergies Allergen (clinical drug ingredient) Drug/Non Drug Allergy documented on EMR Reaction Allergy Type Onset Date Status Product containing sulfonamide (product) (uncoded) Unknown Allergy 03/27/2017 active REASON FOR VISIT The patient has not responded to topical antifungals and wants to try something different., Patientpresents for at-risk foot care . The patient has painful toenails that cause difficulty with ambulation and shoegear. The onset is gradual Medications Medication SIG (Take, Route, Frequency, Duration) Notes Start Date End Date Status ciclopirox 80 MG/ML Topical Solution ciclopirox 80 MG/ML Topical SolutionOriginal Medicationciclopirox 80 MG/ML Topical Solution *Reorder from [employer] for eRx and Interaction Alerts* 07/17/2017 Active Vital Signs Height 64.00 in 10/28/2024 Weight 132 lbs 10/28/2024 BMI 22.66 kg/m2 10/28/2024 Height-cm 162.56 cm 10/28/2024 Weight-kg 59.87 kg 10/28/2024 Encounters Encounter Location Date Provider Diagnosis [facility] [address] [place], [place] [phone] 10/28/2024 SHANKAR PARSON Tinea unguium B35.1 Assessments Encounter Date Diagnosis (ICD Code) Assessment Notes Treatment Notes Treatment Clinical Notes Section Notes 10/28/2024 Tinea unguium (ICD-10 - B35.1) FUNGAL [...] a total of 12 weeks of therapy. Plan Of Treatment Treatment Notes Assessment Notes Tinea unguium FUNGAL TOENAILS: Discussed various treatment options for [...] a total of 12 weeks of therapy. Pending Test Test Name Order Date Liver Function Test (LFT) 10/28/2024 Next Appt Details Follow Up: 5 weeks, Reason: See how oral lamisil is tolerated. Repeat LFTs Provider Name:SHANKAR PARSON, 09:10:00 AM, [address], [facility], [place], [place], [phone], Provider Name:SHANKAR PARSON, 10:00:00 AM, [address], [facility], [place], [place], [phone], Progress Notes * XENA RAMIREZ ADOB:1949 (74 yo F)Acc No.[id number]:10/28/2024 Patient: XENA ELLIOTT Provider: Daniel Parson DPM :1950 A ge:74 Y S ex:Female Date:10/28/2024 Address:[address], [facility] Subjective: * Chief Complaints: * 1 . The patient has not responded to topical antifungals and wants to try something different.. 2. Patient presents for at-risk foot care . The patient has painful toenails that cause difficulty with ambulation and shoegear. The onset is gradual. * HPI: H PI: General care P atient presents to the office for at risk foot care. Patient states that their nails are thickened, elongated and painful. Patient states that it is aggravated by shoe gear. Onset is gradual. Patient denies being diabetic., Patient denies taking blood thinners., Date last seen by Dr. Latif was 06/2024., Initials [facility]. sample. * ROS: G eneral / Constitutional: Patient denies c hills, fever, weight loss. ? C ardiovascular: Patient denies e brett, shortness of breath. ? M usculoskeletal: Patient denies w eakness, broken foot bone. ? S kin: Patient complains of f ungal nails, nail changes. ? N eurologic: Patient denies b alance difficulty, confusion, difficulty speaking, dizziness. * Medical History: * Family History: F ather: PRN - Father: :: Pneumonia,,known absent , :: COPD,,known absent . M other: PRN - Mother: :: Stroke,,known absent . B rother: SIB - Brother: . * Social History: M igrated Social History: M igrated Social History: Smoking Status : Never smoked , History of tobacco use :. * Medications: T aking ciclopirox 80 MG/ML Topical Solution , Notes to Pharmacist: ciclopirox 80 MG/ML Topical SolutionOriginal Medicationciclopirox 80 MG/ML Topical Solution *[facility] for eRx and Interaction Alerts*, Medication List reviewed and reconciled with the patient * Allergies: P roduct containing sulfonamide (product): Allergy - Onset Date 03/27/2017. Objective: * Vitals: W t:132lbs, Wt-k.87 kg, Ht: 64.00 in, Ht-cm: 162.56 cm, BMI:22.66Index, Body Surface Area: 1.64. * Examination: C onstitutional: Constitutional T he patient is awake, alert, well developed, well groomed and well nourished. D ermatologic: Skin findings: S kin is thin, atrophic and lacking pedal hair. Nail pathology: N ails 1, 2, 3, 4, and 5 bilateral are elongated, thick, discolored, and dystrophic with subungual debris. They are painful to palpation. ? V ascular: Dorsalis pedis pulse: 1 /4 b ilateral. Posterior tibial pulse: 0 /4 b ilateral. Capillary refill: g reater than 3 seconds. Edema: N o edema, bilateral. N eurologic: Gross sensation G ross sensation is intact to light touch.? M usculoskeletal: Muscle Strength M uscle strength is 5/5 in regards to dorsiflexion, plantarflexion, inversion, and eversion in bilateral lower extremities. ? Assessment: * Assessment: 1. T leighann montes - B35.1 (Primary) Plan: * Treatment: * Immunizations: Immunization record has been reviewed and updated. * Follow Up: 5 weeks (Reason: See how oral lamisil is tolerated. Repeat LFTs) * Billing Information: * Visit Code: * Procedure Codes: * Electronic signature of SHANKAR PARSON DPM on 11/03/2024 at 08:22 AM CDT Sign off status: Pending * Provider: Daniel Parson DPM Date: 10/28/2024 Generated for Memo knox/Dominguez/Lew on: 11/03/2024 08:22 AM CDT History and Physical Notes * HPI (History of Present Illness) Category Sub-Category Detail Notes Category Not es HPI General care Patient presents to the office for at risk foot care. Patient states that their nails are thickened, elongated and painful. Patient states that it is aggravated by shoe gear. Onset is gradual. Patient denies being diabetic., Patient denies taking blood thinners., Date last seen by Dr. Latif was 06/2024., Initials [facility] sample Examination Category Sub-Category Detail Notes Category Not es Dermatologic Skin findings: Skin is thin, at rophic and lacking pedal hair Nail pathology: Nails 1, 2, 3, 4, an d 5 bilateral are elongated, thick, discolored, and dystrophic with subungual debris. They are painful to palpation Neurologic Gross sensation Gross sensation is intact to light touch Vascular Dorsalis pedis pulse: 1/4 bilateral Edema: No edema, bilateral Capillary refill: greater than 3 secon ds Posterior tibial pulse: 0/4 bilateral Musculoskeletal Muscle Strength Muscle strength is 5/5 in regards to dorsiflexion, plantarflexion, inversion, and eversion in bilateral lower extremities Constitutional Constitutional The patient is a wake, alert, well developed, well groomed and well nourished
--- NOTE | 2024-11-03 08:23 | ED_ITS ---
HPI - Eye Problem General Chief complaint: Eye Problems Stated complaint: LT Eye Problems Time Seen by Provider: 11/03/24 08:34 Source: patient and RN notes reviewed Mode of arrival: ambulatory Limitations: no limitations History of Present Illness HPI Narrative: 74-year-old female presents concern for left eye pain. Reports she felt a pain when she was taking her contact lens out last night, she woke up this morning it was worse. She reports watery drainage. She put her contact in her unaffected right eye because or glasses are broken. Otherwise she denies vision changes. MD chief complaint: eye pain Related Data Home Medications ?Medication ?Instructions ?Recorded ?Confirmed ?Last Taken ?Type calcium carbonate (Calcium 600) 600 mg PO DAILY 02/12/21 11/03/24 Unknown History cholecalciferol (vitamin D3) 25 25 mcg PO DAILY 02/12/21 11/03/24 Unknown History mcg (1,000 unit) capsule famotidine 20 mg tablet (Pepcid AC) 20 mg PO DAILY 05/25/23 11/03/24 Unknown History Allergies Allergy/AdvReac Type Severity Reaction Status Date / Time lactose AdvReac Intermediate Nausea and Verified 11/03/24 08:21 Vomiting Sulfa (Sulfonamide AdvReac Intermediate Nausea and Verified 11/03/24 08:21 Antibiotics) Vomiting Ylrqavo-ETS-ShH Reductase AdvReac Mild muscle Verified 11/03/24 08:21 Inhibitor aches Review of Systems Review of Systems: CONSTITUTIONAL: Denies malaise, chills, sweats, or fever. EYES: Denies visual changes. Reports left eye redness, irritation, watery discharge. ENT: Denies rhinorrhea, congestion, sinus pain, otalgia or sore throat. SKIN: Denies rash or itching. NEUROLOGIC: Denies numbness, weakness, or headache. PSYCHIATRIC: Denies anxiety or depression. All systems reviewed & are unremarkable except as noted in HPI and below PMFSH Past Medical History Medical History Hyperlipidemia Impacted cerumen Flatulence, eructation, and gas pain Iatrogenic hyperthyroidism Acute pain Back sprain Streptococcus exposure Bronchitis Subacute sinusitis Bloating Diarrhea Abdominal pain Acute otitis media of right ear with perforation Sinusitis Encounter for general adult medical examination without abnormal findings Allergy status to other drugs, medicaments and biological substances status Sialoadenitis of submandibular gland Bronchitis Age-related osteoporosis without current pathological fracture Elevated LDL cholesterol level Gastro-esophageal reflux disease without esophagitis Hypothyroidism, unspecified Postmenopausal Conjunctivitis Acute sinusitis Surgical History Surgical History H/O: hysterectomy Family History Family History Mother Family history of elevated blood lipids Hypertension Cerebrovascular accident, Onset Age: 63 Patient's mother is Father Family history of chronic obstructive pulmonary disease, Onset Age: 77 Patient's father is Sibling Scleroderma Social History Social History Social History: Smoking status: Never smoker Second hand tobacco smoke exposure: No Alcohol intake: never Substance use: never Substance use type: does not use Do You Feel Safe in your Home?: Yes Lack of Transportation: No Lack of Food: Never True Current Housing: I Have Housing Concerned About Future Housing: No Difficulty Paying Gas/Electric Bills: No Difficulty Paying for Meds: No Currently Unemployed: YES Education: Decline to Answer Difficulty w/ Childcare or Family Care: No Living arrangements: other Additional living arrangements comments: With spouse Occupation/Education: retired Gender identity (if verbalized by the patient): Female Sexual Orientation (if Verbalized by the Patient): Straight or Heterosexual Spiritual care concerns: No Comments At time of signature, agree with nursing past medical, surgical, social and family history. There is no relevant family history pertinent to the presenting complaint Exam Narrative: GENERAL: Well-appearing, well-nourished, and in no acute distress. HEAD: Normocephalic, atraumatic. EYES: PERRLA, sclera clear, and EOMI. No nystagmus. Left sclera injected, corneal abrasion noted upon Wood's lamp exam, see note. Upper and lower eyelid unremarkable, no periorbital edema noted ENT: Nares clear, turbinates pink, no rhinorrhea or epistaxis. Mucous membranes moist. TM pearly unger with sharp light reflex bilaterally; no tragal tenderness. NECK: Supple. CHEST: No respiratory distress. Speaks in full sentences. HEART: Regular rate and rhythm. SKIN: Warm, dry, no visible rash. NEURO: Alert and oriented x3. PSYCH: Normal mood and affect Course Course Emergency Course: Patient is aware of diagnosis, understands and agrees to treatment plan. Anticipatory guidance given. Patient agrees to follow-up as directed and is aware of reasons to seek care at the emergency department. Portions of this record may have been created with voice recognition software Level of Care: Express Care Visit Vital Signs Vital signs: Reviewed. Procedures Other Procedure Procedure 1: Other Procedure: Tetracaine 1 gtt instilled in left eye, fluorescein stain applied. Corneal abrasion noted upon vivar lamp exam directly above the pupil. Eye washed with NS 100 ml. No foreign bodies or Irene sign noted. MDM - Eye Problem MDM Narrative Medical decision making narrative: Consideration of the following conditions may be warranted for the presenting problem, they are not final diagnoses: Bacterial conjunctivitis, allergic conjunctivitis, viral conjunctivitis, foreign body, blepharitis, chalazion, hordeolum, corneal abrasion, preseptal cellulitis, orbital cellulitis. No evidence of proptosis, ophthalmoplegia, vision loss, pain with eye movement. Exam findings show no acute concerns or changes; patient is non-toxic appearing and is in no distress. Patient is appropriate for outpatient treatment and follow-up. Critical Care Time Critical Care Time Critical Care Time: No Discharge Plan Discharge Clinical Impression: Corneal abrasion Patient Disposition: Home Condition: Stable Instructions: Corneal Abrasion (ED) Additional Instructions: Corneal abrasions will heal in 1-2 days. Keep your eye shut and wear sunglasses or stay in low light to avoid light sensitivity. Do not touch or rub your eye or use a fabric patch You may take Tylenol or ibuprofen for pain Follow-up with PCP or mining helper if condition is not improving in 2-3days. Patient Language: Kittitian Prescriptions: New polymyxin B sulf-trimethoprim 10,000 unit- 1 mg/mL drops 1 drp LEFT EYE Q3H 7 Days Qty: 10 0RF Rx Instructions: while awake; do not exceed 6 doses in 24 hours No Action calcium carbonate [Calcium 600] 600 mg calcium (1,500 mg) tablet 600 mg PO DAILY cholecalciferol (vitamin D3) 25 mcg (1,000 unit) capsule 25 mcg PO DAILY famotidine [Pepcid AC] 20 mg tablet 20 mg PO DAILY alendronate 70 mg tablet See Rx Instructions .ROUTE .COMPLEX Qty: 12 1RF Dose Instruction: TAKE 1 TABLET BY MOUTH WEEKLY Rx Instructions: TAKE 1 TABLET BY MOUTH WEEKLY levothyroxine 100 mcg tablet See Rx Instructions .ROUTE .COMPLEX Qty: 78 2RF Dose Instruction: TAKE 1 TABLET BY MOUTH EVERY DAY, SKIP MONDAY Rx Instructions: TAKE 1 TABLET BY MOUTH EVERY DAY, SKIP MONDAY fluticasone propionate 50 mcg/actuation spray,suspension 1 spray intranasal BID Qty: 16 2RF Rx Instructions: administer into each nostril Follow-up/Referrals: Oral Latif MD [Primary Care Provider] - Time of Disposition: 08:43
[2024-11-03 08:29] VITALS: BP 145/61; PULSE 75; RESP 16; TEMP 36.6; O2SAT 95
== END 2024-11-03 08:45 | disposition home or self-care (01) ==
PROVIDERS: Emergency Provider Nurse Practitioner; PCP Family Medicine
DX: S05.02XA Injury of conjunctiva and corneal abrasion without foreign body, left eye, initial encounter (principal); X58.XXXA Exposure to other specified factors, initial encounter; E78.5 Hyperlipidemia, unspecified; K21.9 Gastro-esophageal reflux disease without esophagitis; E03.9 Hypothyroidism, unspecified
CPT/HCPCS: 99213; A9270; G0463

== ENCOUNTER 2024-12-11 13:52 | Outpatient (CLI) | payer MEDICARE, SELFPAY ==
--- NOTE | ~2024-12-11 | MM_ITS ---
EXAMINATION: MM screening tez BI w elliott HISTORY: Screening mammogram TECHNIQUE: Craniocaudal and mediolateral oblique 3-D tomosynthesis images were obtained and synthetic 2-D images were generated. CAD analysis was submitted and interpreted. COMPARISON: 06/15/2022, 03/25/2021 BREAST PARENCHYMAL COMPOSITION:Not Dense. There are scattered areas of fibroglandular density. FINDINGS: No suspicious mass, calcification, or architectural distortion are identified in either breast to suggest malignancy. There has been no suspicious interval change. IMPRESSION: No mammographic evidence of malignancy. Recommend routine screening mammography in one year. BI-RADS Category 1: Negative Reviewed, dictated and finalized at location .
== END 2024-12-11 13:53 | disposition home or self-care (01) ==
LOC: MICIMG 13:53
PROVIDERS: PCP Family Medicine; Visit Provider Family Medicine
DX: Z12.31 Encounter for screening mammogram for malignant neoplasm of breast (principal)
CPT/HCPCS: 77063; 77067